=== PATIENT | male | born 1980 | race African-American/Black ===

== ENCOUNTER 2016-10-17 16:45 | Emergency (ER) | payer OTHER ==
[~2016-10-17] VITALS: Ht 182.9 cm; Wt 72.7 kg
[~2016-10-17 16:45] MED LIST: ACULAR 0.5100 DROP/5 LEFT EYE; AMOXICILLIN500 MG PO; NAPROSYN500 MG PO; PERCOCET 5/31 TABLET PO; VIGAMOX 0.60 DROP/3 LEFT EYE
[2016-10-17 17:53] LABS: HEMATOCRIT 45.5 % (38.0-50.0); MCH 32.6 PG (29.0-34.0); MCHC 34.5 G/DL (30.0-36.0); MCV 94.4 FL (86-99); PLATELET COUNT 182 K/uL (156-360); RBC DIS.WIDTH-CV 12.2 % (11.8-14.6); RBC DIS.WIDTH-SD 41.6 % (39-53); RED BLOOD COUNT 4.82 M/uL (4.00-5.50); WHITE BLOOD COUNT 4.6 K/uL (4.1-10.2)
[2016-10-17 18:00] LABS: CHLORIDE 104 mEq/L (99-109); POTASSIUM 4.5 mEq/L (3.7-5.4); SODIUM 140 mEq/L (136-147)
[2016-10-17 18:02] LABS: GLUCOSE 70 mg/dL (70-99)
[2016-10-17 18:03] LABS: ANION GAP 10 MEQ/L (2-14)
[2016-10-17 18:04] LABS: TOTAL BILIRUBIN 0.4 mg/dL (0.0-1.0)
[2016-10-17 18:06] LABS: ALKALINE PHOSPHATASE 59 IU/L (3-129); GFR ESTIMATE (CALCULATED) > 59 mL/min/
[2016-10-17 18:07] LABS: UREA NITROGEN (BUN) 14 mg/dL (9-23)
[2016-10-17] MEDS ORDERED: FLEXERIL10 MG PO (18:21)
[2016-10-17] MEDS ORDERED: NAPROSYN500 MG PO (18:21)
[2016-10-17 18:34] VITALS: BP 115/64
== END 2016-10-17 18:38 | disposition home or self-care (01) ==
LOC: EME 16:45
PROVIDERS: Physician Assistant
DX: S03.02XA Dislocation of jaw, left side, initial encounter (principal); X58.XXXA Exposure to other specified factors, initial encounter; F17.200 Nicotine dependence, unspecified, uncomplicated; F10.20 Alcohol dependence, uncomplicated; F12.20 Cannabis dependence, uncomplicated
CPT/HCPCS: 80053; 85027; 99281; 99284